=== PATIENT | female | born 1995 ===

== ENCOUNTER 2023-06-22 23:25 | Observation (INO) | payer MEDICAID ==
[~2023-06-22] VITALS: Ht 167.6 cm; Wt 80.7 kg
[2023-06-23] MEDS ORDERED: PREN27TA7 OR (01:41)
[2023-06-23] MEDS ORDERED: FERR1TAB31 PO (01:42)
== END 2023-06-23 01:54 | disposition home or self-care (01) ==
LOC: LDRP 23:25
PROVIDERS: ADMIT Obstetrics & Gynecology; ATTEND Obstetrics & Gynecology
DX: O62.9 Abnormality of forces of labor, unspecified (principal); O26.893 Other specified pregnancy related conditions, third trimester; R10.9 Unspecified abdominal pain; Z87.891 Personal history of nicotine dependence; Z3A.37 37 weeks gestation of pregnancy
CPT/HCPCS: 59025; 76818; 81002; 94760; G0378